=== PATIENT | male | born 1980 | race Caucasian/White ===

== ENCOUNTER 2024-07-27 15:05 | Outpatient (AMB) | payer OTHER, SELFPAY ==
--- NOTE | 2024-07-27 15:07 | MHC.OFFVIS ---
Vital Signs 07/27/24 15:23 Height 6 ft Weight 234 lb 4 oz BMI 31.8 BP 180/102 H Blood Pressure Location Lt brachial Position Sitting Respiration 16 Pulse 90 Pulse Source Pulse Oximeter Pulse Oximetry (%) 96 Oxygen Delivery Method Room Air Intake Visit Reasons: Chronic Pain Intake Note: Patient comes in for initial visit was referred by Family psychiatry. Reports pain 9/10. Allergies No Known Allergies Allergy (Verified 07/27/24 15:08) HPI Comments Details: Jose is very unfortunate 44 years old gentleman who presents in my office with complains on severe pain in his left groin, he reports pain 9/10. He stated that his pain is related to the surgery he had for hernia repair in 2011. Apparently Dr. Bonner from [facility] operated on him with endoscopic (intra-abdominal or maybe para-abdominal it is unknown at this time) left inguinal hernia repair. He was told to avoid heavy lifting and difficult activities for 2 weeks, he was told to go and get to his normal activities after that. He was playing with his son with he felt severe pain in the left lower quadrant. Most likely his mesh was broken and he had his bowels protruding through the mesh and strangulated because he was emergently operated on that day with open inguinal hernia repair. After this open inguinal hernia repair he continued to fill severe pain in the projection of the prior surgery. He was explained by his surgeon that due to scar tissues his ilioinguinal nerve gut entrapped and since then patient was experiencing severe pain as described above. He was on exuberant doses of the opioid medications 20 mg of oxycodone 3 times a day. Unfortunately the prescriber of this doses recently retired and now patient was left without opioid medications she continues to be prescribed gabapentin NSAIDs short courses of steroids and he also received transforaminal L4-S1 epidural steroid injection based on MRI dictation which was performed in [facility]. He reported that this epidural injection only aggravated his pain. He reports that he can not sleep normally can not do activities of daily living she can not take care of himself but she can not function normally. On permanent disability. In terms of tissue damage he reports his pain as jumping, shooting, stabbing, lancinating, sharp, cutting, lacerating, pinching, cramping, crushing, punishing, killing, tight, squeezing, tearing. His past medical history significant for headaches only he surgical history described as above. He admits smoking cigarettes 1 pack per day he denies drinking alcohol he drinks coffee and caffeinated beverages and he denies recreational drugs. [facility] Social History (Updated 07/27/24 @ 15:27 by Shirley Nogueira) Alcohol intake: never Tobacco use type: Cigarette Review of Systems ENT Reports Normal hearing present Card Reports no additional complaints Resp Reports no additional complaints GI Reports no additional complaints Reports no additional complaints Musc Reports as per HPI Neuro Reports as per HPI, Reports Normal hearing present, Denies Abnormal speech present and Denies Sensory deficit (Neuro) Physical Exam Vital Signs: Last Vital Signs Pulse 90 07/27/24 15:23 Resp 16 07/27/24 15:23 BP 180/102 H 07/27/24 15:23 Pulse Ox 96 07/27/24 15:23 Oxygen Delivery Method Room Air 07/27/24 15:23 BMI result Body Mass Index 31.8 Const General: no acute distress Nutritional Appearance: obese (Trivial obesity) Orientation/consciousness: patient oriented x3 Eyes General: appearance normal, both eyes and all related structures Pupils: Equal, round and reactive pupils present EOM: EOMs intact bilaterally Neck Neck: Yes full ROM Chest Chest palpation & inspection: normal inspection of the chest Resp Effort & Inspection: normal respiratory effort, able to speak in complete sentences, normal respiratory pattern, no audible wheezes and no cough Cardio Jugular venous distension: no JVD GI Other: On inspection the patient has scar in left lower quadrant delineating previous surgery. The scar is well healed. Neuro General: patient oriented x3 and gait normal Cranial nerves: Yes CN's II-XII intact bilaterally, Yes Equal, round and reactive pupils present, Yes Normal hearing present and Yes Ability to bilaterally elevate shoulders present Speech: No Abnormal speech present Gait exam (Neuro): Normal gait present Motor exam (neuro): 5/5 motor strength present throughout Sensory Exam: No Sensory deficit (Neuro) Extrem General: No pedal edema Psych Speech and movement: Normal speech and movement present Affect: normal affect Attitude: cooperative Thought process: Normal thought process present Thought content: Normal thought content present Insight: Good insight present (Psych) Judgement: Good judgement present (Psych) Results Reviewed Results Reviewed: MRI lumbar spine with no contrast 03/29/2019. MRI lumbar spine 07/29/2017 comparison. Findings: There are 4. non rib-bearing lumbar vertebra level labeled L5-S1 on the previous MR lumbar spine is actually L4-S1 conus medullaris terminates at L1 level and demonstrates normal signal. There is no abnormal thickening or clumping of the caudal equina nerve roots. Vertebral body heights are normal. There is extensive signal changes of the bone marrow at L4-S1 consistent with degenerative change and this is increased since the previous study. At T12-L1 no significant disc herniation central canal stenosis or neural foraminal stenosis. At L1-L2 no significant disc herniation central canal stenosis or neural foraminal narrowing. At L2-L3 no significant disc herniation central canal stenosis or neural foraminal narrowing. There is mild bilateral facet arthropathy. At L3-L4 no significant disc herniation central canal stenosis or neural foraminal narrowing. There is mild disc bulging and mild bilateral facet arthropathy. At L4-S1 there is severe disc space narrowing and disc bulging and disc desiccation. There is approximately 6 mm of retrolisthesis of L4 relative to S1. There is mild facet arthropathy. There is moderate bilateral neural foraminal stenosis. There is broad-based central disc protrusion which minimally effaces anterior subarachnoid space. There is no central canal narrowing no spinal stenosis Impression there are 4 non rib bearing lumbar vertebra there is increased STIR signal of L4 and S1 vertebral bodies compared with previous studies. 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 Since then the patient had another 5 years and nobody checked his MRI to establish the progression of spondylolisthesis and he did not have any x-rays to evaluate the situation with spondylolisthesis in terms of spinal mobility. I will schedule this patient for MRI of the lumbar spine without contrast I also will schedule her for x-ray of the lumbar spine in bending forward and backwards positioned to evaluate retro and anterolisthesis. The patient was on oxycodone 20 mg 3 times a day. Now the provider who prescribed him this exuberant doses of the opioid medication retired and nobody is willing to cotton picker operator this prescription for the patient. I explained to this patient that unfortunately I very unlikely will be able to prescribe him the same doses here. However we can try spinal cord stimulator and dorsal root ganglion stimulator for this patient to help his pain. I gave him brochure from [employer] to to read. I am planning to perform left-sided lumbar positioned in the gutter 16 contact epidural lead for the trial. If this will go successfully for the patient I will offer him permanent implant. I also will consider cure on X PNS DRG if the [employer] scientific device will not be helping him in 75-80% pain improvement. Orders: Orders MR lumbar spine wo con Today M43.17 - Spondylolisthesis, lumbosacral region, M54.51 - Vertebrogenic low back pain XR lumbar spine bending only Today M43.17 - Spondylolisthesis, lumbosacral region Coding Level of Care Code New Pt Level 3 (61366) Diagnoses Compression neuropathy of left ilioinguinal nerve G57.82 Chronic pain syndrome G89.4 Vertebrogenic low back pain M54.51 Spondylolisthesis at L5-S1 level M43.17
[2024-07-27 15:23] VITALS: BP 180/102; PULSE 90; RESP 16; O2SAT 96; BMI 31.8
== END 2024-07-27 15:49 | disposition home or self-care (01) ==
PROVIDERS: PCP Internal Medicine; Visit Provider Anesthesiology
DX: G57.82 Other specified mononeuropathies of left lower limb (principal); G89.4 Chronic pain syndrome; M54.51 Vertebrogenic low back pain; M43.17 Spondylolisthesis, lumbosacral region
CPT/HCPCS: 99203

== ENCOUNTER → 2024-07-27 15:05 | Outpatient (BNVA) | payer OTHER, SELFPAY | PROVIDERS: PCP Internal Medicine; Visit Provider Anesthesiology | DX: G57.82 Other specified mononeuropathies of left lower limb (principal); M54.51 Vertebrogenic low back pain; M43.17 Spondylolisthesis, lumbosacral region; G89.4 Chronic pain syndrome | CPT/HCPCS: 99202 ==